=== PATIENT | female | born 1955 | race Caucasian/White ===

== ENCOUNTER 2020-10-07 11:20 | Emergency (ER) | payer OTHER ==
[~2020-10-07] VITALS: Ht 167.6 cm; Wt 71.2 kg
[2020-10-07 11:26] VITALS: Ht 167.6 cm; Wt 71.2 kg
[2020-10-07] MEDS ORDERED: ACETAMINOPHEN-H1 TA1 PO (12:25)
[2020-10-07 12:47] VITALS: BP 136/89
== END 2020-10-07 12:50 | disposition home or self-care (01) ==
LOC: ED 11:20
DX: S42.022A Displaced fracture of shaft of left clavicle, initial encounter for closed fracture (principal); W12.XXXA Fall on and from scaffolding, initial encounter; Y93.89 Activity, other specified; Y92.89 Other specified places as the place of occurrence of the external cause; Y99.0 Civilian activity done for income or pay